=== PATIENT | male | born 1965 | race Caucasian/White ===

== ENCOUNTER 2020-04-29 00:14 | Emergency (ER) | payer OTHER, BC, SELFPAY ==
[2020-04-29 00:20] VITALS: BP 110/73; PULSE 70; RESP 19; TEMP 36.6; O2SAT 100
--- NOTE | 2020-04-29 00:39 | ED.BACK ---
HPI - Back Pain/Injury General Chief Complaint: Back Pain/Injury Stated Complaint: back pain Time Seen by Provider: 04/29/20 00:30 History of Present Illness HPI Narrative: Right low back pain since yesterday. Started after lifting a heavy object at work. Worse after waking up today. Cannot sleep or find a comfortable position. He has a h/o sciatica. Related Data Home Medications Medication Instructions Recorded Confirmed alprazolam 1 mg PO DIRECTED PRN 08/12/19 08/12/19 cyclobenzaprine 10 mg PO DIRECTED 08/12/19 08/12/19 diclofenac sodium 75 mg PO BID 08/12/19 zaleplon 5 mg PO HS 08/12/19 08/12/19 [id number]-[id number]-FA-vit K 1 tablet PO DAILY 04/29/20 [Adults Multivitamin] Allergies Allergy/AdvReac Type Severity Reaction Status Date / Time No Known Allergies Allergy Verified 04/29/20 00:36 Review of Systems Review of Systems: All systems reviewed & are unremarkable except as noted in HPI and below Constitutional: Constitutional: Denies fever(s) Cardiovascular: Cardiovascular: Denies chest pain Respiratory: Respiratory: Denies dyspnea Genitourinary: Genitourinary: Denies hematuria and Denies dysuria Musculoskeletal: Musculoskeletal: Reports back pain Neurologic: Denies numbness and Denies weakness [facility] Past Medical History Medical History (Updated 04/29/20 @ 04:33 by Trino Ovalles MD) Sciatica Social History Social History Gender identity (if verbalized by the patient): Male Exam Const: General: healthy appearing, no acute distress and alert Orientation/consciousness: patient oriented x3 HENMT: Head: normal to inspection Neck: Neck: normal visual inspection and no lymphadenopathy Chest: Chest palpation & inspection: no tenderness Resp: Effort & Inspection: normal respiratory effort Auscultation: clear to auscultation bilaterally, no rales, no rhonchi and no wheezes Cardio: Jugular venous distension: no JVD Rate: regular rate Rhythm: regular rhythm Heart sounds: no murmurs GI: Inspection: non-distended GI Palp: Yes Soft to palpation and No Tenderness to palpation present (GI) Back/Spine/Pelvis: Other: right lumbar paraspinal and gluteal tenderness Skin: General skin exam: normal color Neuro: General: patient oriented x3 and moves all extremities Speech: normal speech Extrem: General: no edema Psych: Appearance: well kempt Affect: normal affect Course Vital Signs Vital signs: Vital Signs Temperature 36.6 C 04/29/20 00:20 Pulse Rate 70 04/29/20 00:20 Respiratory Rate 19 04/29/20 00:20 Blood Pressure 110/73 04/29/20 00:20 Pulse Oximetry 100 04/29/20 00:20 Temperature 36.6 C 04/29/20 00:20 Pulse Rate 60 04/29/20 02:25 Respiratory Rate 17 04/29/20 02:25 Blood Pressure 100/60 04/29/20 02:25 Pulse Oximetry 96 04/29/20 02:25 Discharge Plan Discharge Clinical Impression: Strain of lumbar region Qualifiers: Encounter type: initial encounter Qualified Code(s): S39.012A - Strain of muscle, fascia and tendon of lower back, initial encounter Patient Disposition: Home, Self-Care Condition: Stable Instructions: Low Back Strain (ED) Prescriptions: New methylprednisolone [Medrol (Ad)] 4 mg tablets,dose pack See Rx Instructions .ROUTE .COMPLEX Qty: 21 RF: 0 No Action alprazolam 1 mg tablet 1 mg PO DIRECTED PRN (Reason: Anxiety) RF: 0 cyclobenzaprine 10 mg tablet 10 mg PO DIRECTED RF: 0 diclofenac sodium 75 mg tablet,delayed release (DR/EC) 75 mg PO BID RF: 0 zaleplon 5 mg capsule 5 mg PO HS RF: 0 Adults Multivitamin 18 mg iron-400 mcg-25 mcg Tablet 1 tablet PO DAILY RF: 0 Interventions: Discharge Disposition Last Done: 04/29/20 02:25 IV Stop Time Documented Last Done: 04/29/20 02:25 Follow-up/Referrals: Poncho,Yuliana Lockett MD [Primary Care Provider] - Discharge Date/Time: 04/29/20 02:2
[2020-04-29 02:25] VITALS: BP 100/60; PULSE 60; RESP 17; O2SAT 96
== END 2020-04-29 02:25 | disposition home or self-care (01) ==
PROVIDERS: Emergency Provider Emergency Medicine; PCP Family Medicine
DX: S39.012A Strain of muscle, fascia and tendon of lower back, initial encounter (principal); X50.9XXA Other and unspecified overexertion or strenuous movements or postures, initial encounter
CPT/HCPCS: 96372; 99284; A9270; J1100; J3360

== ENCOUNTER 2023-03-07 13:42 | Outpatient (CLI) | payer BC, SELFPAY ==
--- NOTE | ~2023-03-07 | CT_ITS ---
EXAMINATION: CT lung screening DATE: 03/07/2023 14:11 INDICATION: TOBACCO USE TECHNIQUE: Computed tomography (CT) of the chest was performed without intravenous contrast. Addition al 3D reconstructions utilizing coronal maximum intensity projection (MIP) were performed. Automated exposure control and iterative reconstruction technique were employed. The dose-length product was 74 .21 mGy-cm. COMPARISON: None FINDINGS: Mild emphysema. Small calcified nodules in the left and right lower lobes along with calcified left i nfrahilar lymph node consistent with old granulomatous disease. No noncalcified pulmonary nodules, pn eumonia, pulmonary edema or pleural effusion. Heart size is normal. No pericardial effusion. Thoracic aorta is normal in caliber. No pathologically enlarged thoracic lymphadenopathy. Visualized upper ab domen is unremarkable. Mild thoracic and moderate upper lumbar spondylosis. IMPRESSION: 1. Lung-RADS category 1: Negative. Continue annual screening with noncontrast low-dose chest CT in 12 months. Reviewed, dictated and finalized at location B. IMPRESSION: 1. Lung-RADS category 1: Negative. Continue annual screening with noncontrast l ow-dose chest CT in 12 months.
== END 2023-03-07 13:43 | disposition home or self-care (01) ==
LOC: ANHIMG 13:45
PROVIDERS: PCP Family Medicine; Visit Provider Family Medicine
DX: Z12.2 Encounter for screening for malignant neoplasm of respiratory organs (principal); Z87.891 Personal history of nicotine dependence
CPT/HCPCS: 71271

== ENCOUNTER 2024-04-27 12:54 | Outpatient (CLI) | payer BC, SELFPAY ==
--- NOTE | ~2024-04-27 | CT_ITS ---
EXAMINATION: CT lung screening DATE: 04/27/2024 13:13 INDICATION: tobacco use TECHNIQUE: Computed tomography (CT) of the chest was performed without intravenous contrast. Addition al 3D reconstructions utilizing coronal maximum intensity projection (MIP) were performed. Automated exposure control and iterative reconstruction technique were employed. The dose-length product was 78 .42 mGy-cm. COMPARISON: 03/07/2023 FINDINGS: Mild emphysema. Small calcified nodules in the left lower lobe and inferior right upper lobes along w ith calcified left infrahilar lymph node consistent with old granulomatous disease. No noncalcified p ulmonary nodules, pneumonia, pulmonary edema or pleural effusion. Heart size is normal. No pericardia l effusion. Thoracic aorta is normal in caliber. No pathologically enlarged thoracic lymphadenopathy. Visualized upper abdomen is unremarkable. Mild to moderate thoracic and severe lower cervical and up per lumbar spondylosis. IMPRESSION: 1. Lung-RADS category 1: Negative. Continue annual screening with noncontrast low-dose chest CT in 12 months. Reviewed, dictated and finalized at location A. IMPRESSION: 1. Lung-RADS category 1: Negative. Continue annual screening with noncontrast l ow-dose chest CT in 12 months.
== END 2024-04-27 12:55 | disposition home or self-care (01) ==
LOC: ANHIMG 12:55
PROVIDERS: PCP Nurse Practitioner Family; Visit Provider Family Medicine
DX: Z72.0 Tobacco use (principal)
CPT/HCPCS: 71271

== ENCOUNTER 2024-12-27 09:19 | Outpatient (CLI) | payer OTHER, SELFPAY ==
--- OUTSIDE RECORDS SUMMARY | 2024-12-27 09:26 | XMS_ITS | Encounter Summary ---
Author Organization [employer] Address 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
--- OUTSIDE RECORDS SUMMARY | 2024-12-27 09:26 | XMS_ITS | Encounter Summary ---
Author Organization [facility] Address [address] [place] [address] Care Team Providers Care Mechanical Lead Name Role Phone Unavailable Primary Care Provider Unavailabl e Encounter Details Date Type Department Care Team (Late st Contact Info) Description 05/09/2004 Outpatient Historical [facility] Trauma and General Surgery [address] [address] Dimitry Carmona MD [address] [place] [address] Social History Tobacco Use Types Packs/Day Years Used Date Smoking Tobacco: Never Assessed Sex and Gender Information Value Date Recorded Sex Assigned at Not on file 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
--- OUTSIDE RECORDS SUMMARY | 2024-12-27 09:26 | XMS_ITS | Encounter Summary ---
Author Organization [facility] Address [address] [place] [address] Care Team Providers Care Installer Soft Top Name Role Phone Unavailable Primary Care Provider Unavailabl e Encounter Details Date Type Department Care Team (Late st Contact Info) Description 06/06/2004 Outpatient Historical [facility] Trauma and General Surgery 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
--- OUTSIDE RECORDS SUMMARY | 2024-12-27 09:26 | XMS_ITS | Encounter Summary ---
Author Organization [facility] Address [address] [place] [address] Care Team Providers Care Stave Saw Operator Name Role Phone Unavailable Primary Care Provider Unavailabl e Encounter Details Date Type Department Care Team (Late st Contact Info) Description 05/08/2004 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
--- OUTSIDE RECORDS SUMMARY | 2024-12-27 09:26 | XMS_ITS | Encounter Summary ---
Author Organization [facility] Address [address] [place] [address] Care Team Providers Care Artificial Flowers Dyer Name Role Phone Unavailable Primary Care Provider Unavailabl e Encounter Details Date Type Department Care Team (Late st Contact Info) Description 05/10/2004 Outpatient Historical [facility] Trauma and General Surgery [address] [phone] [place] [address] [place] [address] Social History Tobacco Use Types Packs/Day Years Used Date Smoking Tobacco: Never Assessed Sex and Gender Information Value Date Recorded Sex Assigned at Not on file 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
--- OUTSIDE RECORDS SUMMARY | 2024-12-27 09:26 | XMS_ITS | Encounter Summary ---
Author Organization [facility] Address [address] [place] [address] Care Team Providers Care Asphalt Blender Name Role Phone Unavailable Primary Care Provider Unavailabl e Encounter Details Date Type Department Care Team (Late st Contact Info) Description 05/23/2004 Outpatient Historical [facility] Trauma and General Surgery [address] [id number] [place] [address] [place] [address] Social History Tobacco Use Types Packs/Day Years Used Date Smoking Tobacco: Never Assessed Sex and Gender Information Value Date Recorded Sex Assigned at Not on file 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
--- OUTSIDE RECORDS SUMMARY | 2024-12-27 09:26 | XMS_ITS | Clinical Summary ---
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
--- OUTSIDE RECORDS SUMMARY | 2024-12-27 09:26 | XMS_ITS | Encounter Summary ---
Author Organization [facility] Address 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
--- OUTSIDE RECORDS SUMMARY | 2024-12-27 09:26 | XMS_ITS | Encounter Summary ---
Author Organization [facility] Address [address] [place] [address] Care Team Providers Care Etl Lead Name Role Phone Unavailable Primary Care Provider Unavailabl e Encounter Details Date Type Department Care Team (Late st Contact Info) Description 05/08/2004 Outpatient Historical [facility] Trauma and General Surgery 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
--- OUTSIDE RECORDS SUMMARY | 2024-12-27 09:26 | XMS_ITS | Encounter Summary ---
Author Organization [facility] Address 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
--- OUTSIDE RECORDS SUMMARY | 2024-12-27 09:26 | XMS_ITS | Data Portability ---
Author Organization [place] [facility] [place] [employer], Main Office Address [address] [place] [address] Care Team Providers Care Computer Installation Engineer Name Role Phone ROSARIO DONNELLY Fire Range Technician Unavailable Fire Range Technician [phone] DREAD SCHWARTZ Fire Range Technician [phone] AUNDREA ISAAC Primary Care Provider AUNDREA ISAAC Referring Provider Assessment Encounter Date Assessment Date Assessment LastModified by Organization Details LastModified Time 03/05/2024 03/05/2024 58-year-old male presents for follow-up of his right hand, he has pinky proximal phalanx fracture we have been treating conservatively. He has been using a splint. Also taking ibuprofen his injury. He still reports some stiffness and pain, rated as 4/10. He still has some tenderness over the proximal phalanx. He does have stiffness with flexion and extension. Sensation intact to light touch, brisk cap refill, 2+ radial pulse. X-rays of the hand were reviewed, demonstrating maintenance alignment with healing fracture Given his stiffness, we will send him to OT for working on range of motion. We will maintain the same work status. Follow up in 4 weeks with repeat x-rays after his course of therapy. Anticipate he would be more functional and may be able to return to work at that point. Not available 03/06/2024 18:17:09 04/02/2024 04/02/2024 58-year-old male presents for follow-up of his right hand pinky proximal phalanx fracture. He reports feeling much better, having minimal pain rated as 3/10. He says he is happy with everything. He has been doing physical therapy for motion that has helped. No tenderness in the hand. He has some slight stiffness, approximately 1 cm wafer making a closed fist. He has good extension. Neurovascularly intact. X-rays were reviewed, demonstrating maintenance of alignment, healing fracture At this point, he should finish his course of physical therapy, then we will have him be at [facility], full duty without restrictions. That will be on 04/14/2024. He may follow up PRN after that. Not available 04/03/2024 18:53:02 Plan of Treatment Reminders Order Date Submit Date Provider Last Modified By Organization Details Last Modified Time Details Appointments Follow Up 30 2024 03:30P Declan Engel NP Not available Not available Not available Lab CBC w/ auto diff 2024 025 [employer], [address] , [place], [address], 12/22/2024 17:00:50 CMP, serum or plasma 2024 025 [facility], [address] , [place], [address], 12/22/2024 17:00:52 lipid panel, serum 2024 025 [facility], [address] , [place], [address], 12/22/2024 17:00:52 TSH, serum or plasma 2024 025 [facility], [address] , [place], [address], 12/22/2024 17:00:49 iron + TIBC + ferritin, serum 2024 025 [facility], [address] , [place], [address], 12/22/2024 17:00:53 vitamin B12 + folate, serum or blood 2024 025 [facility], [address] , [place], [address], 12/22/2024 17:00:53 testoster one, free + total, serum 2024 025 [facility] [employer] [facility], [address], [place], [address], 12/22/2024 17:00:49 vitamin D, 25-hydrox y, total, serum 2024 025 [facility], [address], [place], [address], 12/22/2024 17:00:48 HbA1c (hemoglob in A1c), blood 2024 025 [employer] [employer] [facility], [address], [place], [address], 12/22/2024 17:00:51 PSA, serum or plasma 2024 025 [employer] [facility], [address], [place], [address], 12/22/2024 17:00:51 Referral occupatio nal therapist referral 2023 024 [facility], [address], [place], [address], 03/31/2024 19:21:44 Procedures None recorded. Surgeries None recorded. Imaging XR, hand 2023 024 [facility] Shawn Mas, [address], [place], [address], 04/03/2024 14:44:53 XR, hand, 3 or more view 2023 024 [facility] Shawn Mas, [address], [place], [address], 03/06/2024 00:16:46 Medication Orders zaleplon 10 mg capsule 2024 025 [facility], [address], [place], [place], [phone], 12/22/2024 17:00:24 cyclobenz aprine 10 mg tablet 2024 025 [facility] #61065, [address], [place], [place], [id number], 12/22/2024 17:00:10 diclofena c sodium 75 mg tablet,de layed release 2024 025 [facility] #44236, [address], [place], [place], [phone], 12/22/2024 17:00:10 alprazola m 1 mg tablet 2024 025 [facility]27950, [address] , [place], [place], [id number], 12/22/2024 17:00:17 gabapenti n 300 mg capsule 2024 025 [facility] #12414, [address] , [place], [place], [phone], 12/22/2024 17:00:11 zaleplon 10 mg capsule 2023 024 [facility] #47682, [address] , [place], [place], [phone], 05/22/2024 16:05:12 diclofena c sodium 75 mg tablet,de layed release 2023 024 [facility] #20688, [address] , [place], [place], [id number], 05/22/2024 16:05:06 cyclobenz aprine 10 mg tablet 2023 024 [facility] #69953, [address] , [place], [place], [phone], 05/22/2024 16:05:01 gabapenti n 300 mg capsule 2023 024 [facility], [address], [place], [place], [phone], 05/22/2024 16:05:05 alprazola m 1 mg tablet 2023 024 [facility]41052, [address], [place], [place], [phone], 05/22/2024 16:05:03 Patient TargetsNo targets recorded. Patient InstructionsNo instructions recorded. Reason for Referral Occupational Therapist Refer ral for Pain in right hand Referring Physician: Praveen Sheridan, Orthopedic Surgery, Encounter Date: 03/05/2024 Results Created Date Observation Date Name Description Value Unit Range Abnormal Flag Note LastModifiedBy Organization Detail LastModifiedTime 02/13/20 24 XR, hand No observ ation record ed. [email or web address] [facility] [place] [address] [facility] [address], [place], [address], 02/13/2024 15:47:01 03/05/20 24 XR, hand, 3 or more view No observ ation record ed. [email or web address] [facility] [place] [address] [address] [facility] [address], [place], [address], 03/05/2024 14:41:47 04/02/20 24 XR, hand No observ ation record ed. [email or web address] [facility] [place] [address] [facility] [address], [place], [address], 04/02/2024 14:10:22 04/28/20 24 04/27/2024 LDCT, chest , for lung cance r scree cristo No observ ation record ed. [facility] [address], [place], [address], 05/02/2024 16:22:34 Result Notes None recorded. Problems Name Problem SNOMED Code Status Onset Date Resolution Date Notes Provider Name and Address Organization Details Recorded Time Viral gastroente ritis 490240420 Active Not Available [facility] 3 09:26:15 Pain in throat 079309362 Active Not Available [facility] 3 09:26:15 Insomnia 217890171 Active Not Available [facility] 3 09:26:15 Lateral epicondyli tis 317280392 Active Not Available [facility] 3 09:26:15 Osteoarthr itis of knee 536075435 Active Not Available [facility] 3 09:26:15 Headache 31206599 Active Not Available [facility] 3 09:26:15 Low back pain 194853699 Active Not Available [facility] 3 09:26:15 Current tear of medial cartilage AND/OR meniscus of knee Active Not Available [facility] 3 09:26:16 Knee pain Active Not Available [facility] 3 09:26:16 Hip pain 85849119 Active Not Available [facility] 3 09:26:16 Medial epicondyli tis 51438061 Active Not Available [facility] 3 09:26:16 Joint pain 13685614 Active Not Available [facility] 3 09:26:16 Derangemen t of knee 90797069 Active Not Available [facility] 3 09:26:16 Acute stress disorder 55378600 Active Not Available [facility] 3 09:26:16 Hyperglyce loc 13082313 Active 2016 Not Available [facility] 3 09:26:16 Anxiety 27689497 Active 2022 Aundrea Isaac MD [address] [place] [address], [address] , [facility] [employer] [facility] 3 16:33:59 Pain in right hand 9827268895814 09 Active 2023 Lina Lennon Eugene null, [place] [employer] [facility] [employer] 4 14:36:42 Fatigue 04325642 Active 2024 Autumn Engel, LEO[facility] [address] [facility], [address], [place], [address] , [place] [facility] [place] [employer] [facility] 16:45:46 Problem Notes None recorded. Procedures Surgical History Date Name Laterality Status Provider Name and Address Organization Details Recorded Time 08/25/20 19 Hernia repair w/mesh completed Not Available [facility] 12/06/2022 09:23:33 08/25/20 16 Colonoscopy completed Not Available [facility] 12/07/19 09:23:33 Hernia repair w/mesh completed Not Available [facility] 12/06/2022 09:23:33 Imaging Results Imaging Date Name Status LastModified by Organiz ation Details LastModified Time 02/13/2024 XR, hand completed [email or web address] [facility] [place] [address] [address], [place], [address], 02/13/2024 15:47:01 03/05/2024 XR, hand, 3 or more view completed [facility] [place] [address] [facility] [address], [place], [address], 03/05/2024 14:41:47 04/02/2024 XR, hand completed [email or web address] [facility] [place] [address] [address], [place], [address], 04/02/2024 14:10:22 04/27/2024 LDCT, chest, for lung cancer screening completed [facility] [address], [address], 05/02/2024 16:22:34 Procedure Notes None recorded. Medical Equipment None Reported. Allergies No known drug allergies Medications Name Sig Start Date Stop Date Status Note LastModified by Organization Details LastModified Time cyclobenzap rine 10 mg tablet TAKE 1 TABLET BY MOUTH THREE TIMES DAILY NEEDED FOR SPASM 2024 active Not Available Not Available Not Avai lable azithromyci n 250 mg tablet TK 2 TS PO AT ONCE TODAY THEN TK 1 T PO ONCE D FOR 4 DAYS active Not Available Not Available No t Available ibuprofen 800 mg tablet TAKE 1 TABLET BY MOUTH EVERY 8 HOURS WITH FOOD NEEDED FOR PAIN CONTROL 12/22 completed Not Available Not Available Not Available alprazolam 1 mg tablet TAKE 1 TABLET BY MOUTH FOUR TIMES DAILY NEEDED 2024 active Not Available Not Available Not Avai lable hydrocodone 5 mg-acetamin ophen 325 mg tablet TAKE 1 TABLET BY MOUTH EVERY 6 HOURS NEEDED FOR PAIN 12/22 completed Not Available Not Available Not Available prednisone 20 mg tablet Take 2 tablets every day by oral route for 5 days. active Not Available Not Available No t Available hydrocodone 10 mg-acetamin ophen 325 mg tablet 1 po daily prn 04/23 completed Not Available Not Available Not Available tramadol 50 mg tablet active Not Available Not Available No t Available amoxicillin 875 mg tablet TK 1 T PO Q 12 H FOR 7 DAYS active Not Available Not Available No t Available temazepam 15 mg capsule active Not Available Not Available Not Available trazodone 100 mg tablet active Not Available Not Available Not Available promethazin e 25 mg tablet active Not Available Not Available Not Available gabapentin 300 mg capsule TK 1 C PO QHS 2024 active Not Available Not Available Not Avai lable diclofenac sodium 75 mg tablet,nicole yed release TAKE 1 TABLET BY MOUTH TWICE DAILY NEEDED FOR PAIN 2024 active Not Available Not Available Not Avai lable hydrocodone 5 mg-acetamin ophen 500 mg tablet TK 1 TO 2 TS PO Q 4 TO 6 H PRN P active Not Available Not Available No t Available zaleplon 10 mg capsule TAKE 1 CAPSULE BY MOUTH EVERY DAY AT BEDTIME NEEDED 2024 active Not Available Not Available Not Avai lable zaleplon 5 mg capsule TAKE ONE CAPSULE BY MOUTH EVERY NIGHT AT BEDTIME NEEDED 02/14 completed Not Available Not Available Not Available zolpidem 10 mg tablet active Not Available Not Available No t Available methylpredn isolone 4 mg tablets in a dose pack FPD active Not Available Not Available Not Available amoxicillin 875 mg-potassiu m clavulanate 125 mg tablet TAKE 1 TABLET BY MOUTH EVERY 12 HOURS FOR 10 DAYS 01/22 completed Not Available Not Available Not Available bupropion HCl XL 150 mg 24 hr tablet, extended release active Not Available Not Available Not Available eszopiclone 3 mg tablet TAKE 1 TABLET BY MOUTH EVERY NIGHT AT BEDTIME active Not Available Not Available No t Available ProAir HFA 90 mcg/actuati on aerosol inhaler TAKE 2 PUFFS BY MOUTH EVERY 4 HOURS NEEDED 01/22 completed Not Available Not Available Not Available ID NOW COVID-19 Test Kit DIRECTED 01/22 completed Not Available Not Available Not Available Vitals Date Recorded Body height Body mass index (BMI) Body weight Pain severity - 0-10 verbal numeric rating [Score] - Reported Provider Name and Address Organization Details Last Updated DateTime 03/05/2024 172.72 cm 21.7 kg/m2 43927.71 g 4 ARTHUR Paulson [facility] [email or web address] [facility] 03/05/2024 14:40:56 Date Recorded Body height Body mass index (BMI) Body weight Provider Name and Address Organization Details Last Updated DateTime 04/02/2024 172.72 cm 21.3 kg/m2 15622.93 g Kiesha Mckenna CNA [facility] [email or web address] [facility] 04/02/2024 14:09:04 Date Recorded Body height Provider Name an d Address Organization Details Last Updated DateTime 05/05/2024 172.72 cm Daniel Lomeli RN [facility] [email or web address] [facility] 05/05/2024 15:33:23 Date Recorded Body height Body mass index (BMI) Body weight Body temperature Heart rate Oxygen saturation Oxygen saturation in Arterial blood by Pulse oximetry Systolic blood pressure Diastolic blood pressure Provider Name and Address Organization Details Last Updated DateTime 172.72 cm 21.6 kg/m2 79562.1 2 g 97.3 [degF] 78 /min 97 % 97 % 128 mm[Hg] 76 mm[Hg] Daniel Lomeli RN [facility] [email or web address] [facility] 15:46:49 Date Recorded Body height Body mass index (BMI) Body weight Body temperature Heart rate Oxygen saturation Oxygen saturation in Arterial blood by Pulse oximetry Pain severity - 0-10 verbal numeric rating [Score] - Reported Systolic blood pressure Diastolic blood pressure Provider Name and Address Organization Details Last Updated DateTime 172.72 cm 22.2 kg/m2 27817.4 9 g 98.7 [degF] 80 /min 97 % 97 % 0 126 mm[Hg] 70 mm[Hg] Ann Marie Weinstein MA [employer] 16:24:28 Social History Question Answer Notes LastModified by Organization Details LastModified Time Tobacco Smoking Status Current Every Day Smoker started age 32 1 pack per day Aundrea Isaac MD [address] [facility], [address], [address], [employer] 12/17/2023 16:36:28 Do You Have An Advance Directive? No MIGRATION.0301 [id number] Information not available 12/06/2022 What Is Your Level Of Alcohol Consumption? None MIGRATION.0301 [id number] Information not available 12/06/2022 Are You Blind Or Do You Have Difficulty Seeing? No MIGRATION.0301 [id number] Information not available 12/06/2022 What Is Your Level Of Caffeine Consumption? Moderate MIGRATION.0301 [id number] Information not available 12/06/2022 How Much Tobacco Do You Chew? None MIGRATION.0301 [id number] Information not available 12/06/2022 In The 14 Days Before Symptom Onset, Have You Had Close Contact With A Laboratory-confi rmed COVID-19 While That Case Was Ill? No Information not available 12/22/2024 In The 14 Days Before Symptom Onset, Have You Had Close Contact With A Person Who Is Under Investigation For COVID-19 While That Person Was Ill? No Information not available 12/22/2024 Are You Currently Employed? Yes Information not available 12/22/2024 Are You Deaf Or Do You Have Serious Difficulty Hearing? No MIGRATION.0301 [id number] Information not available 12/06/2022 What Type Of Diet Are You Following? REGULAR MIGRATION.0301 [id number] Information not available 12/06/2022 Which Illicit Or Recreational Drugs Have You Used? No MIGRATION.0301 003282 Information not available 12/06/2022 Do You Or Have You Ever Used E-cigarettes Or Vape? Never Used Electronic Cigarettes MIGRATION.0301 637174 Information not available 12/06/2022 What Is Your Occupation? [place] MIGRATION.0301 894061 Information not available 12/06/2022 Have There Been Any Changes To Your Family Or Social Situation? No Information not available 12/22/2024 Are There Any Guns Present In Your Home? No MIGRATION.0301 [id number] Information not available 12/06/2022 Do You Use Insect Repellent Routinely? No Information not available 12/22/2024 Where [facility] You Live? [facility] Information not available 12/22/2024 What Was The Date Of Your Most Recent Tobacco Screening? 12/22/2024 Information not available 12/22/2024 How Many Children Do You Have? 5 Information not available 12/22/2024 Do You Have Any Pets? Yes Information not available 12/22/2024 What Is Your Relationship Status? Domestic Partner Information not available 12/22/2024 Do You Use Your Seat Belt Or Car Seat Routinely? Yes Information not available 12/22/2024 Do You Have Smoke And Carbon Monoxide Detectors In Your Home? Yes Information not available 12/22/2024 At What Age Did You Start Smoking Tobacco? 32 MIGRATION.0301 612819 Information not available 12/06/2022 Are You Passively Exposed To Smoke? Yes Information not available 12/22/2024 Do You Or Have You Ever Used Smokeless Tobacco? Never Used Smokeless Tobacco MIGRATION.0301 267824 Information not available 12/06/2022 Are There Any Smokers In Your House? No Information not available 12/22/2024 How Much Tobacco Do You Smoke? 1 PPD MIGRATION.0301 412265 Information not available 12/06/2022 Do You Feel Stressed (tense, Restless, Nervous, Or Anxious, Or Unable To Sleep At Night)? [id number] Information not available 12/22/2024 Do You Use Sunscreen Routinely? Yes MIGRATION.0301 227241 Information not available 12/06/2022 How Many Years Have You Smoked Tobacco? 23 MIGRATION.0301 207702 Information not available 12/06/2022 Have You Recently Traveled Abroad? No Information not available 12/22/2024 Are You Currently In School? No Information not available 12/22/2024 Do You Have Any Dietary Restrictions? No Information not available 12/22/2024 Sex: Unknown Functional Status Question Answer Note LastModified by Organizat ion Details LastModified Time Do you have difficulty walking or climbing stairs? No MIGRATION.[id number] Information not available 12/06/2022 Do you have difficulty doing errands alone? No MIGRATION.[id number] 26 Information not available 12/06/2022 Do you have difficulty dressing or bathing? No MIGRATION.[id number] 26 Information not available 12/06/2022 What is your exercise level? Moderate MIGRATION.[id number] 26 Information not available 12/06/2022 Mental Status Question Answer Note LastModified by Organizat ion Details LastModified Time Do you have difficulty concentrating, remembering or making decisions? No MIGRATION.[id number] 6 Information not available 12/06/2022 Family History Relationship Description Onset Age of this Age Resolved Age Notes LastModified by Organization Details LastModified Time Father Cirrhosis of liver MIGRATION.057 [id number] Not available 12/06/2022 09:23:34 Mother Malignant tumor of breast MIGRATION.729 [id number] Not available 12/06/2022 09:23:34 Notes:Unsure if any colon or prostate cancer Medical History Condition Response BLINDNESS N RHEUMATIC FEVER N KIDNEY STONES N BLADDER PROBLEMS N MRSA N OTHER # 1 N POLIO N LUNG DISEASE/DISORDER N RADIATION / CHEMOTHERAPY N COPD N Other # 2 N BLOOD DISEASES N SURGERY N EAR OR HEARING PROBLEMS N MUMPS N FEMALE PROBLEMS / INFECTIONS N BOWEL PROBLEMS N DEPRESSION (INCLUDING POST ) N STROKE/TIA N THYROID DISEASE N ULCERS N BENIGN PROSTATIC HYPERPLASIA N MEASLES N CERVICALGIA N TB SKIN TEST N MYOCARDIAL INFARCTION N PARAPELGIA N OBESITY N GERD/NAUSEA N ANEURYSM N URINARY/BLADDER/KIDNEY PROBLEMS N CORONARY ARTERY DISEASE (CAD) N MENIERE'S DISEASE N ADDICTION CONCERNS N ENDOMETRIOSIS N USE OF BLOOD THINNERS N SKIN PROBLEMS N EMPHYSEMA N GASTROINTESTINAL DISORDER N MUSCLE,JOINT OR BONE PROBLEMS N GASTROINTESTINAL BLEEDING N BLOOD CLOTS N ASTHMA N CATARACTS N ERECTILE DYSFUNCTION N GI PROBLEMS N CHF N Low Testosterone N NEUROPATHY N INFERTILITY N AIDS/HIV N FRACTURES N CHEMOTHERAPY / RADIATION N VISION/EYE PROBLEMS N LIVER DISEASE N MALE HYPOGONADISM N HYPERTENSION N TOURETTE'S N ANXIETY DISORDER N BLOOD TRANSFUSION N ANEMIA/BLOOD DISORDER N CHRONIC EAR INFECTIONS N BRONCHITIS N TUBERCULOSIS N GLAUCOMA N FOOT PROBLEM N DIVERTICULITIS N SLEEP APNEA N CHICKENPOX N ALLERGIES/HAYFEVER N INFECTIOUS DISEASE N PROSTATE N HEART ARRHYTHMIA N INSOMNIA N HIGH CHOLESTEROL / HYPERLIPIDEMIA N EYE PROBLEMS N HYPERTHYROIDISM N EATING DISORDER N EDEMA N CHRONIC PAIN SYNDROME N CONSTIPATION N CAROTID BLOCKAGE N BACK / NECK PROBLEMS N HAVE YOU BEEN HOSPITALIZED OR SEEN IN [facility] ER IN THE PAST YEAR ? N ATHEROSCLEROSIS N BREAST PROBLEMS N DIALYSIS N ECZEMA N FIBROMYALGIA N OSTEOPOROSIS N ARTHRITIS N NO SIGNIFICANT PAST MEDICAL HISTORY N APPENDICITIS N DIABETES, TYPE N BAD TEETH N HEARTBURN / REFLUX N ADD/ADHD N AUTISM SPECTRUM DISORDER (ASD) N HEPATITIS / LIVER DISEASE N PULMONARY DISEASE N GOUT N SLEEP DISORDER N ALZHEIMER'S DISEASE N PAIN N DEMENTIA N HERPES N SEIZURES/EPILEPSY N HEADACHES/MIGRAINES N VASCULAR DISEASE N PACEMAKER N DIZZINESS N HEART DISEASE/HEART PROBLEMS N KIDNEY DISEASE N SCARLET FEVER N MULTIPLE SCLEROSIS N DEVELOPMENTAL OR BEHAVIORAL DISORDERS N MENTAL DISORDER/ILLNESS N CANCER: SPECIFY N CARDIAC ARRHYTHMIA N PNEUMONIA N ATRIAL FIBRILLATION N Gall Stones N PULMONARY EMBOLISM N AUTOIMMUNE DISEASE N Immunizations Vaccine Type Date Status Note Provider Nam e and Address Organization Details Recorded Time COVID-19, mRNA, LNP-S, PF, 30 mcg/0.3 mL dose 2 completed Shani Juarez APRN [address], [address], [place], [address], [facility] [email or web address] [facility] 06/17/2024 08:49:56 COVID-19, mRNA, LNP-S, PF, 30 mcg/0.3 mL dose 1 completed Shani Juarez APRN [address], [address], [place], [address], [facility] [email or web address] [facility] 06/17/2024 08:49:56 COVID-19, mRNA, LNP-S, PF, 30 mcg/0.3 mL dose 1 completed Shani Juarez APRN [address], [address], [place], [address], [facility] [email or web address] [facility] 06/17/2024 08:49:56 COVID-19, mRNA, LNP-S, bivalent, PF, 30 mcg/0.3 mL dose 3 completed Shani Juarez APRN [address], [address], [place], [address], [facility] 06/17/2024 08:49:56 COVID-19, mRNA, LNP-S, PF, purvi-sucrose, 30 mcg/0.3 mL 3 completed Shani Juarez APRN [address], [address], [place], [address], [facility] 06/17/2024 08:50:04 Influenza, split virus, quadrivalent, PF 3 completed Aundrea Isaac MD [address], [address], [place], [address], [facility] [facility] 07/06/2023 09:22:19 Influenza, split virus, trivalent, preservative 2 completed Shani Juarez APRN [address], [address], [place], [address], [facility] 06/17/2024 08:49:56 Influenza, split virus, trivalent, preservative 4 completed Not Available [facility] 12/06/2022 09:28:48 Tdap 5 completed Not Available [facility] 12/06/2022 09:28:48 Influenza, split virus, quadrivalent, PF 7 completed Not Available [facility] 12/06/2022 09:28:48 Influenza, split virus, quadrivalent, PF 4 completed Not Available [facility] 12/06/2022 09:28:48 Influenza, split virus, quadrivalent, PF 0 completed Not Available [facility] 12/06/2022 09:28:48 Influenza, split virus, quadrivalent, preservative 6 completed Not Available [facility] 12/06/2022 09:28:48 Influenza, split virus, quadrivalent, PF 5 completed Not Available [facility] 12/06/2022 09:28:48 Influenza, split virus, trivalent, PF 4 completed Shani Juarez APRN [address], [address], [place], [address], [place] [facility] 06/17/2024 08:49:56 Past Encounters Encounter ID Performer Location Encounter Start Date Encounter Closed Date Diagnosis/Indication Diagnosis SNOMED-CT Code Diagnosis ICD10 Code Diagnosis Note [id number] [facility] Primary Care Dylan ruffin [address] [place] [address] [address] [place] [address] 02/14/2021 00:00:00 02/23/2021 11:04:24 [id number] [facility] Primary [facility] Dylan ruffin [address] [place] [address] [address] [place] [address] 03/10/2021 00:00:00 03/10/2021 08:34:15 [id number] [facility] Dylan ruffin [address] [place] [address] [address] [place] [address] 09/13/2022 00:00:00 09/13/2022 13:01:06 [id number] [facility] [address] [place] [address] [place] [address] 10/11/2022 00:00:00 10/11/2022 17:48:32 [id number] [facility]undrea Isaac [facility] [place] [address] [place] [address] 12/14/2022 15:53:49 12/14/2022 16:37:00 Tobacco user 434146794 Z72.0 Adult heal th examination 012682868 Z00.00 Z13.1 Z13.220 covid bivalent booster recommende dshingles vaccine recommende dFlu vaccine yearlyPneu monia vaccine at 65Colonosc opy 08/2016 repeat 2025Fastin g labs up to date Screening for malignant neoplasm of prostate 758818167 Z12.5 [id number] Aundrea Isaac MD [facility] [address] [place] [address] 06/18/2023 16:30:39 06/18/2023 17:00:30 Administration of influenza vaccine 00477877 Z23 Anxiety 23586679 F41.9 Insomnia 851929479 G47.0 0 [id number] Aundrea Isaac MD [facility] Primary Care Dylan ruffin [address] [place] [address] 12/17/2023 16:25:24 12/17/2023 16:56:11 Adult health examination 041865400 Z00.00 Z13.220 Z79.899 shingles vaccine recommende dFlu vaccine yearlyCovi d booster done 08/30Pneum onia vaccine at 65Colonosc opy 08/2016 repeat 2025Fastin g labs up to dateLDCT ordered-wo rk on smoking cessation Tobacco user 995403970 Z 72.0 work on smoking cessationL DCT due 02/28 Anxiety 45104028 F41.9 stablerefi ll given Insomnia 491702154 G47.0 0 stablerefi ll given Hyperglycemia 01024680 R 73.9 Screening for malignant neoplasm of prostate 285748588 Z12.5 [id number] Moira Snider NP [facility] [place] [address] [place] [address] 01/23/2024 14:16:06 01/23/2024 15:35:14 Pain in right hand 3737166062 68814 M79.687 [id number] Moira Snider NP [facility] [place] [address] [place] [address] 02/13/2024 15:15:25 02/13/2024 15:39:30 Pain in right hand 4362845536 56870 M79.538 [id number] Praveen Sheridan MD [facility] [place] [address] [place] [address] 03/05/2024 14:34:17 03/05/2024 15:39:35 Pain in right hand 5524796860 02875 M79.702 [id number] Praveen Sheridan MD [facility] [place] [address] [place] [address] 04/02/2024 14:06:29 04/02/2024 14:50:52 Pain in right hand 5473144784 77896 M79.175 [id number] ABEL Ramirez [facility] Primary Care Dylan ruffin [address] [place] [address] 05/05/2024 15:28:29 05/05/2024 15:37:51 [id number] ABEL Ramirez [facility] Primary Care Dylan ruffin [address] [place] [address] 05/22/2024 15:43:19 05/22/2024 16:05:30 Anxiety 74080067 F41.9 [place]. [place] of prescription 138178187 Z76.0 Insomnia 843647598 G47.0 0 [place]. Low back pain 765146419 M54.50 [id number] ABEL Ramirez [facility] Primary Care Dyaln ruffin [address] [place] [address] 12/22/2024 16:11:43 12/22/2024 16:57:49 Anxiety 70209638 F41.9 [place]. Insomnia 694780375 G47.0 0 Will refill meds as listed below. Fatigue 96775051 R53.83 Will check labs as listed below. Low back pain 226331760 M54.50 Will refill meds as listed below. Joint pain 77511915 M25. 50 Will refill meds as listed below. Hyperglycemia 99036706 R 73.9 Will check labs as listed below. Adult heal th examination 324365077 Z00.00 Discussed medication compliance and routine follow up.Discuss ed healthy diet and routine exercise.R rosiowed vaccine records and made recommenda tions as needed.Enc ouraged annual eye and dental exams, as well as twice yearly dental cleanings. Will check screening labs as listed below. Screening for malignant neoplasm of prostate 615869043 Z12.5 Will check labs as listed below. Body mass index 20-24 - normal 449724076 Z68.22 Health Concerns Section Related Observation LastModified by Organization Detai ls LastModified Time None Recorded Concern Status LastModified by Organization Details LastModified Time None Recorded Advance Directives Directive N: Payers Encounter Date Sequence Insurance Name Policy Number Policy Candelaria Covered Member ID Candelaria Member ID Guarantor Name 03/05/2024 [employer] Jerardo Ascencio Vernoy Jerardo Ascencio Vernoy 04/02/2024 [employer] Jerardo C Vernoy Jerardo C Vernoy 05/05/2024 1 [place] [id number] Jerardo Vernoy [id number] Jerardo Ascencio Vernoy 05/22/2024 1 [place] [id number] Jerardo Vernoy [id number] Jerardo C Vernoy 12/22/2024 1 [facility] Jerardo Howellnoy [id number] Jerardo C Vernoy Notes Date Note Type Note Provider Name and Address Organization Details Recorded Time 05/22/2024 text/html Patient is a 58 year old male that presents to the office for routine follow up and to discuss controlled substance policy. Patient reports he is doing well on current medications. Patient denies all other concerns including chest pain and shortness of breath, nausea vomiting and diarrhea. ABEL Ramirez [address], [place], [address], [employer] 05/22/2024 16:07:11 12/22/2024 text/html Patient is a 59 year old male that presents to the office for annual wellness. Patient reports he is doing well overall, continues to work on gaining weight. Patient tried drink boost daily however it caused constipation so he stopped. Patient reports increased fatigue over the last few months. Patient states this is not like him. Patient has started working out again thinking it would help but so far no improvement. Patient is doing well on current medications. [id number] deredColonoscopy- declines at this timeFlu- declinesCovid-decl inesTdap-UTDShingl es-declinesPneumon ia-declines ABEL Ramirez [address], [place], [address], [employer] 12/23/2024 08:43:14
--- OUTSIDE RECORDS SUMMARY | 2024-12-27 09:26 | XMS_ITS | Encounter Summary ---
Author Organization [facility] Address 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 Name Role Phone Unavailable Primary Care Provider Unavailabl e Encounter Details Date Type Department Care Team (Latest Contact Info) Description 05/23/2004 [facility] [place] [address] [place] [address] FOLLOW-UP EXAM NEC (Primary Dx) Social History Tobacco Use Types Packs/Day Years Used Date Smoking Tobacco: Never Assessed Sex and Gender Information Value Date Recorded Sex Assigned at Not on file Legal Sex Male 4:59 AM [employer] Gender Identity Not on file Sexual Orientation Not on file documented as of this encounter Plan of Treatment Not on file documented as of this encounter Visit Diagnoses Diagnosis Other follow-up examination(V67.59)- Primary Other follow-up examination documented in this encounter
[2024-12-27 10:07] LABS: Alanine Aminotransferase 22 U/L (6-50); Albumin Level 3.9 g/dL (3.5-5.1); Alkaline Phosphatase 90 U/L (38-126); Anion Gap 4 mmol/L (4-12); Aspartate Amino Transferase 29 U/L (17-59); Bilirubin,Total 0.3 mg/dL (0.2-1.3); Blood Urea Nitrogen 19 mg/dL (9-20); Calcium 8.7 mg/dL (8.4-10.2); Carbon Dioxide 28 mmol/L (22-30); Chloride 107 mmol/L (98-107); Cholesterol 151 mg/dL (0-200); Estimated Glomerular Filt Rate > 60; Glucose 100 mg/dL (65-110); HDL Direct 55 mg/dL; Potassium 4.3 mmol/L (3.4-5.0); Sodium 139 mmol/L (137-145); Triglycerides 73 mg/dL (<150)
[2024-12-27 10:10] LABS: Basophils Absolute Auto 0.1 K/mm3 (0.0-0.1); Basophils Percent Auto 0.6 % (0.2-1.2); Eosinophils Absolute Auto 0.5 K/mm3 (0-0.3); Eosinophils Percent Auto 6.1 % (0-4.4); Hematocrit 43.2 % (42.0-52.0); Hemoglobin 14.8 g/dL (14.0-18.0); Immature Granulocyte Absolute 0.02 K/mm3 (0.00-0.031); Immature Granulocyte Percent A 0.3 % (0-0.5); Lymphocytes Absolute Auto 2.15 K/mm3 (0.9-3.2); Lymphocytes Percent Auto 27.8 % (18.3-44.2); Mean Corpuscular HGB Conc 34.3 g/dl (32-36); Mean Corpuscular Hemoglobin 31.8 pg (26-34); Mean Corpuscular Volume 92.7 fl (80-100); Mean Platelet Volume 9.8 fl (7.4-10.4); Monocytes Absolute Auto 0.9 K/mm3 (0.1-0.6); Monocytes Percent Auto 11.4 % (2.6-8.5); Neutrophils Absolute Auto 4.2 K/mm3 (1.3-6.7); Neutrophils Percent Auto 53.8 % (45.5-73.1); Platelet Count Result 229 k/mm3 (150-375); Red Blood Count 4.66 M/mm3 (4.6-6.20); Red Cell Distribution Width 14.6 % (11.5-14.5); White Blood Count 7.7 K/mm3 (4.5-10.0)
[2024-12-27 10:18] LABS: LDL Cholesterol Direct 69 mg/dL
[2024-12-27 10:35] LABS: Iron 64 ug/dL (49-181)
[2024-12-27 10:38] LABS: Prostate Specific Antigen 0.4 ng/mL (< OR = 4.0)
[2024-12-27 10:45] LABS: Percent Iron Saturation 21 % (20-50)
[2024-12-27 10:59] LABS: Vitamin D 25 Hydroxy 29.7 ng/mL
[2024-12-27 11:07] LABS: Thyroid Stimulating Hormone Reflex 0.996 uIU/mL (0.465-4.68)
[2024-12-27 11:13] LABS: Folic Acid 9.2 ng/mL (2.76->20)
[2024-12-27 11:53] LABS: Hemoglobin A1C 5.6 % (<5.7)
== END 2024-12-27 09:20 | disposition home or self-care (01) ==
LOC: ANHLAB 09:24
PROVIDERS: PCP Nurse Practitioner Family; Visit Provider Nurse Practitioner Family
DX: Z00.00 Encounter for general adult medical examination without abnormal findings (principal); R73.9 Hyperglycemia, unspecified; Z12.5 Encounter for screening for malignant neoplasm of prostate; R53.83 Other fatigue
CPT/HCPCS: 36415; 80053; 80061; 82306; 82607; 82746; 83036; 83540; 83550; 84153; 84402; 84403; 84443; 85025; G0103